=== PATIENT | male | born 1940 | race Caucasian/White ===

== ENCOUNTER → 2019-05-16 | Outpatient (CLI) | payer OTHER ==
[~2019-05-16] VITALS: Ht 182.9 cm; Wt 127.0 kg
[~2019-05-16] MED LIST: ALLOPURINOL 10100 M1 PO; AMARYL4 MG PO; AMLODIPINE BESY10 MG PO; COREG25 MG PO; COZAAR 25 MG TA25 M1 PO; JANUVIA100 MG PO; LEVOXYL75 MCG PO; PLAVIX 75 MG TA75 M1 PO; VELTASSA8.4 GM PO; VITAMIN D31000 UNIT PO
--- NOTE | 2019-05-19 11:47 | P ---
[facility] [place] [address] PROCEDURE REPORT Name: MARLENMasonTESSIE Room #: REG [facility]#: [id number] Admission: 05/16/19 ������������������ Attend Phys: Juan Manuel Goyal MD Discharge: ������������������ Date of : 44 Report #: [id number] THIS REPORT FOR: //name// CC: Juan Manuel Amaral DATE OF SERVICE: 05/16/2019 BRIEF HISTORY: The patient is a 78-year-old male with history of multiple colon adenomas in the past. Three years ago, he had 4 adenomas removed. He presents for high risk screening colonoscopy due to history of colon polyps. POSTOPERATIVE DIAGNOSES: 1. Diminutive polyp, hepatic flexure. 2. Moderately severe sigmoid diverticulosis coli. MEDICATIONS: Deep sedation with propofol per anesthesia. SPECIMEN: Hepatic flexure polyp. ESTIMATED BLOOD LOSS: 3 mL. PROCEDURE: Colonoscopy to cecum with biopsy. FINDINGS: Prior to propofol sedation, procedure of colonoscopy was discussed with the patient as well as potential risks and its complications. He indicates he understands and desires to proceed. DESCRIPTION OF PROCEDURE: With the patient in left lateral decubitus position, digital examination was completed, which revealed no abnormalities. Subsequently, Olympus video colonoscope was introduced into the rectum and advanced under direct vision to the cecum. Done with minimal difficulty. The cecum was identified by the ileocecal valve and the appendiceal orifice. I was able to advance the scope in the cecum and see the ileocecal valve tangentially as well as appendiceal orifice. However, due to looping of the scope, we could not cross the ileocecal valve. At that point, the scope was slowly withdrawn and careful circumferential views obtained. Upon slow withdrawal of the scope, there were some limitations of prep; however, we were able to vigorously lavage the colon and removed much of this material and overall, a good prep was obtained. Mucosa was within normal limits, normal vascular pattern, normal light reflex. As we withdrew the scope, no abnormalities were noted until the hepatic flexure was reached. He was found to have a diminutive polyp, which was removed with biopsy forceps. Scope was further withdrawn and no additional neoplastic changes were seen. As we withdrew the scope distally, there was noted to be moderately severe diverticular disease without endoscopic evidence [address] [address] PROCEDURE REPORT Name: TESSIE SHERWOOD [place] Room #: REG [facility] Ronnie#: [id number] Admission: 05/16/19 ������������������ Attend Phys: Juan Manuel Goyal MD Discharge: ������������������ Date of : 44 Report #: [id number] of diverticulitis involving the sigmoid colon. The scope was withdrawn in the rectum. Upon retroflexion, no abnormalities were seen. Scope was withdrawn. The patient tolerated the procedure well. CONDITION OF THE PATIENT UPON DISCHARGE: Following procedure, the patient drowsy, aroused, conversant and will be discharged home when fully ambulatory. INSTRUCTIONS TO THE PATIENT AND FAMILY AT THE TIME OF DISCHARGE: One polyp seen and removed as described above. We will follow up on the path. In view of his history and finding of polyps today, we will have him return in 5 years for followup colonoscopy. Last colonoscopy was more than 3 years ago. Withdrawal time from cecum was 16 minutes. ��������������������������������������������� <ELECTRONICALLY SIGNED> ���������������������������������������� By: Juan Manuel Goyal MD ��������������������������������������������� 05/19/19 [id number] Juan Manuel Goyal MD /nt
--- NOTE | 2019-05-20 11:06 | PATH ---
[facility] [address] [place] [address] PATHOLOGY RPT PROCEDURE Name: SCOOTER SHERWOOD Room #: REG [facility]..#: [id number] ������������������ Admission: 05/16/19 ������������������ Date of : 44 Discharge: Report #: [id number] Path Case #: [id number] [facility] Accession Number: [id number] . 01 Material submitted: . hepatic flexure - BX POLYP AT HEPATIC FLEXURE . 01 Clinical history: . Polyps, diverticulosis. . 02 Diagnosis: Polyp, hepatic flexure, endoscopic biopsy: - Tubular adenoma. - Negative for high grade dysplasia. (IUV/db; 05/19/2019) LBQ/05/19/2019 . 02 Electronically signed: . Rosa M Vargas MD, Pathologist NPI- [id number] . 01 Gross description: . Received in formalin labeled "Scooter Sherwood, BX polyp at hepatic flexure" is a 0.5 x 0.4 x 0.1 cm fragment of quiroga-brown mucosa. The specimen is submitted in A1. [place] [place] SYC/SYC . 02 Pathologist provided ICD-10: D12.3 . 02 CPT . 845956 Specimen Comment: A courtesy copy of this report has been sent to Specimen Comment: [phone], . Specimen Comment: Report sent to / DR RICHTER Performed at: [address] [id number] MD Carmine Ross MD Phone: [phone] Performed at: [address] [id number] MD Rosa M Vargas MD Phone: [phone]
== END | disposition home or self-care (01) ==
LOC: GI 08:24
DX: Z12.11 Encounter for screening for malignant neoplasm of colon (principal); Z86.010 Personal history of colon polyps; D12.3 Benign neoplasm of transverse colon; K57.30 Diverticulosis of large intestine without perforation or abscess without bleeding; I12.9 Hypertensive chronic kidney disease with stage 1 through stage 4 chronic kidney disease, or unspecified chronic kidney disease; N18.4 Chronic kidney disease, stage 4 (severe); E11.22 Type 2 diabetes mellitus with diabetic chronic kidney disease; M10.9 Gout, unspecified; G47.30 Sleep apnea, unspecified; Z90.49 Acquired absence of other specified parts of digestive tract; Z98.890 Other specified postprocedural states; Z87.891 Personal history of nicotine dependence; Z98.41 Cataract extraction status, right eye; Z95.5 Presence of coronary angioplasty implant and graft; Z98.42 Cataract extraction status, left eye; Z88.8 Allergy status to other drugs, medicaments and biological substances; Z79.899 Other long term (current) drug therapy
CPT/HCPCS: 62110; 62900